=== PATIENT | female | born 1960 | race Two or more races ===

== ENCOUNTER 2017-10-21 09:23 | Day surgery (SDC) | payer OTHER ==
[2017-10-13 12:12] VITALS: BMI 24.0
[2017-10-21] MEDS ORDERED: PROPOFOL 20 ML ONE ×2 (13:14)
[2017-10-21] MEDS ORDERED: MIDAZOLAM HCL 2 MG/2 ML SINGLE DOSE VIAL ONE (13:15)
[2017-10-21] MEDS ORDERED: BENZOIN/ALOE VERA/STORAX/TOLU 58 ML BOTTLE ONE (14:28)
[2017-10-21] MEDS ORDERED: BUPIVACAINE HCL 0.25% 125 MG/50 ML VIAL ONE (14:28)
[2017-10-21] MEDS ORDERED: EPINEPHrine 1:1,000 1 MG/1 ML - 30ML VIAL (INJECTION) ONE (15:09)
[2017-10-21] MEDS ORDERED: methylPREDNISolone ACET (DEPO) 40 MG/1 ML VIAL ONE (15:53)
--- NOTE | 2017-10-21 16:17 | OP ---
Operative Note - Note: Operative Date: 10/21/17 Pre-Operative Diagnosis: Right knee: 1. Medial & lateral meniscus tear. 2. Osteoarthritis Operation: Surgical arthroscopy right knee. Chondroplasty medial femoral condyle. Partial lateral meniscectomy (degenerative root). Tourniquet Pressure : 250mmHg. Tourniquet Time: 45 minutes. 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
--- NOTE | 2017-10-21 16:19 | PN ---
Progress Note (short form) - Note Progress Note: 56F s/p surgical arthroscopy right knee, partial lateral meniscectomy, & chondroplasty medial femoral condyle POD #0. -Pain control: Meloxicam & oxycodone PRN. -Incentive spirometry. -No chemical DVT PPx. -WBAT RLE. -Keep dressing clean & dry. -d/c dressing on Tuesday; cover incision sites with waterproof Band-Aids; OK to resume showering thereafter. -Cane vs crutches. -f/u in [facility] [place] [facility] on 10/27/2017; call for appointment; . Gus Ponce MD (Orthopaedic Surgery).
[2017-10-21] MEDS ORDERED: ONDANSETRON 4 MG/2 ML VIAL IVPUSH PRN (16:25)
[2017-10-21] MEDS ORDERED: oxyCODONE HCL 5 MG TABLET PO PRN ×2 (16:25)
[2017-10-21] MEDS ORDERED: PROMETHAZINE HCL 25 MG/1 ML VIAL IVPUSH PRN (16:25)
[2017-10-21 17:31] VITALS: TEMP 98.2
[2017-10-21 18:25] VITALS: BP 132/86; PULSE 68
--- NOTE | 2017-10-27 15:31 | OP ---
Date of Operation: 10/21/2017 Pre-Operative Diagnosis: 1. Right medial meniscus tear 2. Right lateral meniscus tear 3. Right knee degenerative joint disease Post-Operative Diagnosis: 1. 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 Medial and lateral patella. b. Medial femoral condyle. 2. Chondromalacia with deep fissuring with bone exposed, lateral tibial plateau. 3. Degenerative tear, lateral meniscus root. Surgical Procedure: 1. Surgical arthroscopy right knee 2. Right knee medial femoral condyle chondroplasty 3. Partial lateral meniscectomy 4. Irrigation 5. Debridement. 6. Intra-Articular Injection: 6mL of 0.25% Marcaine with 2mL of Depo-Medrol ( 40 mg/mL). Anesthesia: General (LMA). Position: Supine. Incision: Standard anteromedial & anterolateral knee arthroscopy portals. Tourniquet Pressure: 250mmHg. Tourniquet Time: 45 minutes. Estimated Blood Loss: 0cc. Intravenous Fluid: 600cc. Specimens: None. Drains: None. Complications: None. Urine Output: None. Bacteriology: None. Transfusions: None. Closure: 3-0 Nylon. Indications: The patient was indicated for a surgical arthroscopy of the right knee with possible partial medial and/or lateral meniscectomy to facilitate improved motion and mobilization, and to prevent complications associated with a sedentary lifestyle. The patient was identified in the holding area by her armband. A long discussion was held with the patient regarding the risks, benefits and alternatives of the above-named procedure. Risks include but are not limited to : pain, bleeding, infection, damage to surrounding structures (including nerves , blood vessels, skin, ligaments, tendons and bone), wound complications, need for further surgery, blood clots, myocardial infarction, pulmonary embolism, anaesthesia complications, compartment syndrome, limb loss, limp, loss of function, and . Benefits as mentioned above. Alternatives include no surgery. All questions were answered. The patient understood and agreed to the procedure. Informed consent was obtained, witnessed and verified. The patients correct operative limb - the right lower extremity - was marked, and the patient was taken to the operating room after being seen by the anesthesia and nursing staff. Procedure: The patient was brought into the operating room, placed on the OR table and secured with a safety strap. Consent and the operative site was again verified with the patient and nursing and anaesthesia staff. Anesthesia was then administered without complication. 2g IV Ancef was administered. A time out was done led by me, the attending surgeon. The patient was positioned with all bony prominences well padded. A tourniquet was placed proximally on the right thigh and set to 250mmHg and the thigh was then secured in an arthroscopic leg-jay. The operative limb was prepped in standard sterile fashion using Betadine prep & scrub, wiped off with alcohol, and then DuraPrep applied. The operative limb was then free draped. Time out was again done, the limb was exsanguinated using an Esmarch, the tourniquet was inflated, and the case began. Surface anatomy of the knee was drawn, marking the patella, patellar tendon, and medial & lateral joint lines. With the knee flexed to 45 degrees, a standard anterolateral arthroscopy portal was made using an 11 blade. A blunt trocar was then inserted into the knee at the same angle as the incision. The blunt trocar was then slipped into the suprapatellar pouch as the knee was slowly extended. The trocar was removed through its overlying canula, and the arthroscope was inserted in its place. The fluid inflow, which had already been primed, was then attached to the canula along with the outflow suction tubing. The knee was then insufflated with normal saline solution containing epinephrine. The suprapatellar pouch was then inspected with no evidence of synovitis. The medial & lateral retro-patellar surfaces revealed chondromalacia with bone exposed and fibrillations. The trochlear groove demonstrated extensive damage and chondromalacia, also with bone exposed. The patellofemoral articulation appeared otherwise normal. Next, the arthroscope was delivered into the medial gutter of the knee as the knee was slowly flexed. No loose bodies were seen. With gentle valgus force applied to the knee, the arthroscope was slipped into the medial compartment. The medial femoral condyle demonstrated extensive chondromalacia with bone exposed. Numerous loose chondral flaps were identified adjacent to areas of deficient cartilage. The medial meniscus appeared intact. Beaking of the medial tibial eminence was evident. Next, the arthroscope was delivered into the intercondylar notch. The ACL was visualized and appeared intact. The probe was used to demonstrate the ACLs stability. Next, an 18-gauge spinal needle was used to plan an anteromedial portal. With the correct position and working trajectory verified, the spinal needle was removed, and an 11 blade was utilized to create a standard anteromedial arthroscopy portal. A blunt trocar was then inserted via the anteromedial portal into the medial compartment of the knee under direct arthroscopic visualization via the anterolateral portal. A probe was inserted via the anteromedial portal demonstrating the instability of the chondral flaps on the medial femoral condyle. The probe was used to demonstrate the stability of the medial meniscus, and the absence of a meniscal tear. The meniscal root and capsular attachments were intact, as also determined by the probe. The probe was used to inspect the superior and inferior surfaces of the medial meniscus and no derangement was identified. A motorized 3.5mm shaver was then inserted via the anteromedial portal and the macerated chondral flaps overlying the medial femoral condyle were gently trimmed back to a stable peripheral rim. The arthroscope was again delivered into the intercondylar notch. The PCL was not well visualized. Gentle varus stress was applied to the knee as the arthroscope was delivered into the lateral compartment. A degenerative tear of the posterior horn of the lateral meniscus was visualized. The root insertion of the posterior horn of the lateral meniscus was preserved. Chondromalacia with deep fissuring and bone exposed on the lateral tibial plateau was visualized. The motorized 3.5mm shaver was then used to trim the lateral meniscus tear back to a stable peripheral rim. The arthroscope was then delivered into the lateral gutter of the knee where no loose bodies were seen. The arthroscope was then returned to the suprapatellar pouch as the knee was gently extended. The knee was irrigated with 2-3L of normal saline solution. Intra-operative photographs were captured using the arthroscope at numerous steps throughout the case. An intra-articular injection consisting of 5mL of 0.25% Marcaine with 2mL of Depo-Medrol (40 mg/mL) was injected into the knee. Hemostasis was assured, and the wounds were closed primarily using 3-0 nylon sutures in figure-8 fashion. Xeroform and a sterile, compressive dressing was applied. The tourniquet was released at a final time of 45 minutes. The sponge and needle counts were correct at the end of the case and I the attending was present and scrubbed throughout the case. The patient was then transferred to the recovery room in stable condition, as per the anesthesiology team, having tolerated the procedure well. MD GRISELDA Johnson/[id number] MTDD
--- NOTE | 2017-10-27 15:32 | OP ---
DATE OF OPERATION: 10/21/2017 PREOPERATIVE DIAGNOSES: Right knee: 1. Medial and lateral meniscus tear. 2. Osteoarthritis. POSTOPERATIVE DIAGNOSES: Right knee: 1. 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 A. Medial and lateral patella. B. Medial femoral condyle. 2. Chondromalacia with deep fissure; no bone exposed. A. Lateral tibial plateau. 3. Degenerative tear, lateral meniscus root. SURGERY PERFORMED: 1. Surgical arthroscopy, right knee. 2. Chondroplasty, medial femoral condyle. 3. Partial lateral meniscectomy (degenerative root). TOURNIQUET PRESSURE: 250 mmHg. TOURNIQUET TIME: 45 minutes. SURGEON: Gus Ponce MD TUBE CLEANER: None. ANESTHESIOLOGIST: Nicolás Acevedo MD ANESTHESIA: General. ESTIMATED BLOOD LOSS: Zero. FLUID VOLUME REPLACEMENT: 600 mL. At the end of the case, a 7 mL injection consisting of 5 mL of 0.25% Marcaine and 2 mL of Depo-Medrol 40 mg/mL was injected into the right knee. CLOSURE: 3-0 Biosyn and 3-0 nylon. MD GRISELDA Johnson/[id number]
== END 2017-10-21 18:20 | disposition home or self-care (01) ==
LOC: FASU 09:23
PROVIDERS: ATTEND Orthopaedic Surgery Adult Reconstructive Orthopaedic Surgery
PROC: 0SBC4ZZ Excision of Right Knee Joint, Percutaneous Endoscopic Approach (ICD-10-PCS; 2017-10-21)
PROC: 0SBC4ZZ Excision of Right Knee Joint, Percutaneous Endoscopic Approach (ICD-10-PCS; principal; 2017-10-21 11:00)
DX: S83.281A Other tear of lateral meniscus, current injury, right knee, initial encounter (principal); M94.261 Chondromalacia, right knee; M22.41 Chondromalacia patellae, right knee; X58.XXXA Exposure to other specified factors, initial encounter; Y93.9 Activity, unspecified; Y92.9 Unspecified place or not applicable
CPT/HCPCS: 94760